=== PATIENT | male | born 1975 | race Caucasian/White ===

== ENCOUNTER 2017-12-26 16:49 | Emergency (ER) | payer BC ==
[2017-12-26 17:16] VITALS: BP 177/88; PULSE 84; RESP 20; TEMP 97.2; O2SAT 98
== END 2017-12-26 18:15 | disposition home or self-care (01) ==
LOC: ED 16:49
DX: S69.91XA Unspecified injury of right wrist, hand and finger(s), initial encounter (principal); W23.0XXA Caught, crushed, jammed, or pinched between moving objects, initial encounter
CPT/HCPCS: 73140; 99282

== ENCOUNTER 2018-04-09 12:33 | Emergency (ER) | payer OTHER, BC ==
[2018-04-09 13:00] VITALS: TEMP 98.7
[2018-04-09 14:40] VITALS: RESP 18
[2018-04-09 14:41] VITALS: BP 161/97; PULSE 87; O2SAT 97
== END 2018-04-09 14:38 | disposition home or self-care (01) | DRG 605 ==
LOC: ED 12:33
DX: S20.212A Contusion of left front wall of thorax, initial encounter (principal)
CPT/HCPCS: 71100; 99282